=== PATIENT | male | born 1980 | race Caucasian/White ===

== ENCOUNTER 2017-02-11 17:54 | Emergency (ER) | payer MEDICAID ==
[2017-02-11] MEDS ORDERED: CEPHALEXIN 500 MG CAPSULE PO ONE (18:29)
[2017-02-11] MEDS ORDERED: MUPIROCIN 2% OINTMENT 22 GM TP ONE (18:29)
[2017-02-11 18:37] VITALS: BP 147/96
--- NOTE | 2017-02-11 18:37 | ER Document Report ---
ED Skin Rash/Insect Bite/Abscs - General Chief Complaint: Abscess Stated Complaint: POSSIBLE SPIDER BITE Time Seen by Provider: 02/11/17 18:20 Mode of Arrival: Ambulatory Information source: Patient Notes: 36-year-old male presents to ED for a insect bite to his arms and neck yesterday. He states he scratched these areas and blisters and redness of started this morning. He states he has a history of MRSA 4 years ago. TRAVEL OUTSIDE OF THE [place] IN LAST 30 DAYS: No - HPI Patient complains to provider of: Possible insect bite Onset: Yesterday Onset/Duration: Worse Quality of pain: Sharp Severity: Moderate Pain Level: 3 Skin Character: Erythema, Tenderness, Thickening Skin Temperature: Warm Quality of rash: Painful Identify cause: Yes - Started as an insect bite Exacerbated by: Other - Patient states he scratched the insect bite when it became infected Relieved by: Denies Similar symptoms previously: Yes Recently seen / treated by doctor: No - Related Data Allergies/Adverse Reactions: No Known Allergies Allergy (Unverified 02/11/17 18:10) Past Medical History - General Information source: Patient - Social History Smoking Status: Current Every Day Smoker Cigarette use (# per day): Yes - Pack per day Chew tobacco use (# tins/day): No Smoking Education Provided: Yes - Less than 2 minutes Frequency of alcohol use: Occasional Drug Abuse: None Occupation: Construction Lives with: Family Family History: CAD, CVA, Hyperlipidemia, Hypertension Patient has suicidal ideation: No Patient has homicidal ideation: No - Past Medical History Cardiac Medical History: Reports: None Pulmonary Medical History: Reports: None EENT Medical History: Reports: None Neurological Medical History: Reports: None Endocrine Medical History: Reports: None Renal/ Medical History: Reports: None Malignancy Medical History: Reports None GI Medical History: Reports: None Musculoskeltal Medical History: Reports None Skin Medical History: Reports Hx Cellulitis, Reports Hx MRSA Psychiatric Medical History: Reports: None Infectious Medical History: Reports: None, Hx MRSA Surgical Hx: Negative - Immunizations Hx Diphtheria, Pertussis, Tetanus Vaccination: No Review of Systems - Review of Systems Constitutional: No symptoms reported EENT: No symptoms reported Cardiovascular: No symptoms reported Respiratory: No symptoms reported Gastrointestinal: No symptoms reported Genitourinary: No symptoms reported Male Genitourinary: No symptoms reported Musculoskeletal: No symptoms reported Skin: Other - Insect bite infected Hematologic/Lymphatic: No symptoms reported Neurological/Psychological: No symptoms reported -: Yes All other systems reviewed and negative Physical Exam - Vital signs Vitals: Temp Pulse Resp BP Pulse Ox 98.3 F 75 16 147/96 H 97 02/11/17 18:11 02/11/17 18:11 02/11/17 18:11 02/11/17 18:11 02/11/17 18:11 Interpretation: Normal - General General appearance: Appears well, Alert - HEENT Head: Normocephalic, Atraumatic Eyes: Normal Pupils: PERRL - Respiratory Respiratory status: No respiratory distress Chest status: Nontender Breath sounds: Normal Chest palpation: Normal - Cardiovascular Rhythm: Regular Heart sounds: Normal auscultation Murmur: No - Abdominal Inspection: Normal Distension: No distension Bowel sounds: Normal Tenderness: Nontender Organomegaly: No organomegaly - Back Back: Normal, Nontender - Extremities General upper extremity: Normal inspection, Nontender, Normal color, Normal ROM , Normal temperature General lower extremity: Normal inspection, Nontender, Normal color, Normal ROM , Normal temperature, Normal weight bearing. No: Lynn's sign - Neurological Neuro grossly intact: Yes Cognition: Normal Orientation: AAOx4 Carter Coma Scale Eye Opening: Spontaneous Dolph Coma Scale Verbal: Oriented Carter Coma Scale Motor: Obeys Commands Dolph Coma Scale Total: 15 Speech: Normal Motor strength normal: LUE, RUE, LLE, RLE Sensory: Normal - Psychological Associated symptoms: Normal affect, Normal mood - Skin Skin Temperature: Warm Skin Moisture: Dry Skin Color: Normal Skin irregularity: Abscess Location of irregularity: Extremities - Right lower arm redness all tender swollen area with purulent drainage after opened with needle. Character of irregularity: Erythematous Irregularity with: Swelling, Tenderness, Warmth Course - Vital Signs Vital signs: Temp Pulse Resp BP Pulse Ox 98.3 F 75 16 147/96 H 97 02/11/17 18:11 02/11/17 18:11 02/11/17 18:11 02/11/17 18:11 02/11/17 18:11 Procedures - Incision and Drainage Right Arm Type: Simple Anesthetic type: Other - none mL's of anesthetic: 0 Blade size: Other - 18-gauge needle I&D procedure: Betadine prep applied Incision Method: Incision made with needle Amount/type of drainage: Small amount of purulent Discharge - Discharge Clinical Impression: Infected insect bite Qualifiers: Encounter type: initial encounter Qualified Code(s): W57.XXXA - Bitten or stung by nonvenomous insect and other nonvenomous arthropods, initial encounter Condition: Stable Disposition: HOME, SELF-CARE Additional Instructions: ABSCESS: You have an abscess (boil). This a pus-forming infection, usually due to staph. Some boils may be left to drain on their own, but most require lancing. From the time the tender lump first appears, it may be three or four days before the abscess is ready to renata. Local heat and rest help at this stage of treatment. An antibiotic may prevent spread of the infection. Once the abscess is opened, packing may be placed into it. This is done so pus is not sealed inside by premature closure of the cavity. The packing will be removed at your follow-up visit or you may be advised to remove it yourself at home. Sometimes this packing must be replaced a few times during healing. The wound will heal with surprisingly little scar. Depending on the size and location of an abscess, healing can take one to four weeks. You may shower and wash the area around the incision site two or three times a day. Antibiotics may be prescribed, but are usually not necessary after an abscess has been drained. If you develop fever, chills, worsening pain, or increasing swelling in the area, call the doctor or return immediately. POST INCISION AND DRAINAGE: You have had an incision made to allow drainage of an abscess. The incision must remain open so that pus and debris can drain from the wound. If the abscess cavity is large, packing is placed. This keeps the tissues from collapsing and trapping pus inside, while the body shrinks the cavity. The packing may need to be replaced every day or two. The physician will instruct you on the packing. Keep a bulky dressing over the area. Replace it if it becomes saturated with blood or pus. Do not disturb the packing (if present). You may shower and cleanse the area with gentle soap and warm water two or three times a day. Local warmth may be soothing, and may promote faster healing. Return if you develop high fever or chills, or if you note spreading redness, increasing swelling, or increasing tenderness. Bactroban Ointment Bactroban is very effective against the germs that cause infection within the skin. It's useful for impetigo and other superficial infections. Deeper infections require antibiotics by mouth or by shot. Apply the medicine three times a day for one week, or longer if your doctor has advised it. Stop the medicine and call your doctor if you develop large blisters, severe itching, increasing pain, swelling, fever, or spreading redness. CEPHALEXIN: The antibiotic you've been prescribed is a member of the cephalosporin class. This type of antibiotic covers a wide variety of infections, including those of the skin, lungs, and urinary tract. It's useful for staph infections. This antibiotic is slightly similar to the penicillin family. In rare cases , a person who is allergic to penicillin will also be allergic to this medication. If you have had a severe allergic reaction to penicillin, and have not taken this antibiotic since that time, notify your doctor. Antibiotics which cover many germs ("broad spectrum" antibiotics) are more likely to cause diarrhea or "yeast" infections. Women prone to vaginal yeast problems may suffer an attack after taking this antibiotic. In infants, oral thrush (white spots "stuck" on the cheek) or yeast diaper rash may result. See your doctor if these problems occur. Call at once if you develop itching, hives , shortness of breath, or lightheadedness. FOLLOW-UP CARE: Most simple abscesses will not require a follow up visit. If you had packing placed in the abscess, remove it as instructed by the physician. If you have been referred to a physician for follow-up care, call the physicians office for an appointment as you were instructed or within the next two days. If you experience worsening or a significant change in your symptoms, return to the Emergency Department at any time for re-evaluation. Prescriptions: Cephalexin Monohydrate [Keflex 500 mg Capsule] 500 mg PO QID #20 capsule Mupirocin [Bactroban 2% Ointment 22 gm] 22 applic TP TID #1 tube Forms: Elevated Blood Pressure, Smoking Cessation Education, Return to Work
== END 2017-02-11 18:40 | disposition home or self-care (01) ==
LOC: ER 17:54
PROC: 0H9DXZZ Drainage of Right Lower Arm Skin, External Approach (ICD-10-PCS; principal; 2017-02-11)
DX: L02.413 Cutaneous abscess of right upper limb (principal); F17.210 Nicotine dependence, cigarettes, uncomplicated; W57.XXXA Bitten or stung by nonvenomous insect and other nonvenomous arthropods, initial encounter
CPT/HCPCS: 99282; 87070; 87205; 87075; 10060; J3490